=== PATIENT | female | born 1950 | race Caucasian/White ===

== ENCOUNTER 2018-02-04 11:06 | Emergency (ER) | payer MEDICARE, OTHER, SELFPAY ==
[2018-02-04 11:19] VITALS: BP 150/91; PULSE 91; RESP 18; TEMP 36.8; O2SAT 100; BMI 27.8
[2018-02-04] MEDS: ONDANSETRON 4 MG/2 ML INJ IV (11:54)
[2018-02-04] MEDS: SODIUM CHLORIDE 0.9% 1,000 ML 1000 ML IV ×2 (11:54→14:02)
[2018-02-04 12:02] LABS: Add Manual Diff / Slide Review NO; Basophils Percent Auto 0.8 % (0-2); Eosinophils Percent Auto 0.5 % (2-4); Hematocrit 42.8 % (36-46); Hemoglobin 14.9 g/dL (12.0-16.0); Lymphocytes Percent Auto 18.4 % (25-40); Mean Corpuscular HGB Conc 34.8 % (30-36); Mean Corpuscular Hemoglobin 31.6 PG (26-34); Mean Corpuscular Volume 90.8 fL (80-100); Monocytes Percent Auto 8.5 % (3-14); Neutrophils Absolute Auto 6200 /uL (3000-5900); Neutrophils Percent Auto 71.8 % (50-75); Platelet Count 187 X10^3/uL (150-400); Red Blood Cell Count 4.72 X10^6/uL (4.0-5.2); Red Cell Distribution Width 13.2 % (11.6-14.8); White Blood Cell Count 8.6 X10^3/uL (4.5-11.0)
--- NOTE | 2018-02-04 12:05 | PC.NURSE ---
Discussed ETOH use. Pt states she has increased ETOH r/t multiple life stressors over past year. (mother , 's cancer returned). Has strong jessee. Interested in counseling. Denies SI/HI. Has been on retirement lexapro.
[2018-02-04 12:10] LABS: Prothrombin Time 10.7 SECONDS (10.1-12.7)
[2018-02-04 12:12] LABS: PTT Partial Thromboplastin Tim 26 SECONDS (26.4-36.2)
[2018-02-04 12:47] LABS: Alanine Aminotransferase 131 IU/L (9-52); Albumin 4.5 g/dL (3.5-5.0); Albumin Globulin Ratio 1.7 (1.0-2.8); Alkaline Phosphatase 102 U/L (38-126); Aspartate Aminotransferase 100 IU/L (14-36); BUN Creatinine Ratio 21.4 (6-22); Blood Urea Nitrogen 15 mg/dL (7-17); Calcium 9.1 mg/dL (8.4-10.2); Carbon Dioxide 31 mmol/L (22-32); Chloride 97 mmol/L (98-107); Estimated Glomerular Filt Rate > 60.0 mL/min (>60); Globulin 2.7 g/dL (1.7-4.1); Glucose 100 mg/dL (80-110); HEMOLYSIS < 15 (0-50); Lipase 30 U/L (23-300); Potassium 3.9 mmol/L (3.4-5.1); Sodium 137 mmol/L (137-145); Total Protein 7.2 g/dL (6.3-8.2)
[2018-02-04 12:54] VITALS: BP 142/90; PULSE 99; RESP 15; O2SAT 98
[2018-02-04] MEDS: PANTOPRAZOLE 40 MG VIAL IV (14:02)
[2018-02-04] MEDS: PHENobarbital 65 MG/ML VIAL 130 MG IV (14:34)
[2018-02-04 14:45] VITALS: BP 131/65; PULSE 88; O2SAT 97
[2018-02-04 15:25] VITALS: BP 143/86; PULSE 105; RESP 18; O2SAT 96
[2018-02-04 15:45] VITALS: BP 136/74; PULSE 90; RESP 16; O2SAT 99
[2018-02-04 16:01] LABS: Bacteria Urine Few (2-10); Culture Indicated Urine Cult Not Indicated; RBC Urine 0-1/HPF (0-5/HPF); WBC Urine 0-1/HPF (0-5/HPF)
--- NOTE | 2018-02-04 16:09 | ED_ITS ---
HPI - Nausea/Vomiting/Diarrhea General Chief complaint: Nausea/Vomiting/Diarrhea Stated complaint: abdominal pain/vomitting/nausea History of Present Illness HPI Narrative: HPI 67-year-old female presents with nausea, intermittent hallucinations, mild malaise, and dry heaves that is been gradual in onset and persistent for 3 days since abrupt alcohol cessation from a bottle of wine daily. Patient chest pain, shortness breath, fevers, chills. Patient denies similar bars of EtOH absence. Patient has a primary care nurse practitioner that she can follow-up with. Patient notes hearing sounds that were present last night and seeing her cat(s) walking through the house last night while there were not present. Patient notes mild anxiety, slight agitation, denies tactile disturbances, denies headache. M/S/F/SocHx notable for: please see HPI; remainder reviewed with patient and in chart. ROS: Negative constitutional, eye, cardiovascular, pulmonary, GI, , MSK, skin , neurologic, psychiatric, endocrine unless noted in the HPI. Exam Gen: Pleasant, non-toxic appearing, appears mildly anxious, otherwise resting comfortably. HEENT: NC, AT, PEERL, EOMI. Resp: Clear to auscultation bilaterally, normal work of breathing, no accessory muscle usage. Card: Regular rate and rhythm with no murmurs, rubs, or gallops, extremities warm and well perfused. GI: Non-tender to palpation throughout all quadrants, no focal tenderness at McBurney's point, negative Lira's sign, non-distended, no rebound or guarding. : No suprapubic tenderness to palpation. MSK: No visible deformities, strength and tone without visually appreciable deficit. Skin: Normal color with no visible lesions. Neuro: AO x 3, no facial asymmetry, vision and hearing WNL. Mild tremor. Palms moist. Mildly increased psychomotor agitation. Patient able to perform serial sevens. Psych: Mood and affect appropriate. Labs / Imaging: WBC 8.6, he was given 14.9 PT/INR 1.0 sodium 137, potassium 3.9, creatinine 0.70, AST 100, ALT 131, total bilirubin 1.0, ALP 102, lipase 30, magnesium 2.0 MDM Previous chart, nursing note, labs, imaging, and vitals reviewed. A: 67-year-old female presents with nausea, intermittent hallucinations, mild malaise, and dry heaves that is been gradual in onset and persistent for 3 days since abrupt alcohol cessation from a bottle of wine daily. DDx & Evaluation: overall symptom constellation strongly consistent with EtOH withdraw, CIWA 20-23 (depending on subjective elements), electrolytes within acceptable limits, patient given 130 mg phenobarbital, 2 L NS, and a PPI. Patient with near complete resolution of symptoms. Gabapentin prescribed for withdraw, patient instructed to follow up with PCP tomorrow for repeat evaluation. History, exam, and labs without evidence of acute intra-abdominal process. Impression: EtOH withdraw (please reference below for remainder of encounter information) Related Data Home Medications Medication Instructions Recorded Confirmed cholecalciferol (vitamin D3) 2,000 unit PO QDAY #0 12/27/10 02/04/18 [Vitamin D3] coenzyme Q10 [Co Q-10] 300 mg PO QDAY #0 12/27/10 02/04/18 escitalopram oxalate [Lexapro] 10 mg PO DAILY #0 12/27/10 02/04/18 multivitamin [Multiple Vitamins] 1 tab PO QDAY #0 12/27/10 02/04/18 famotidine 20 mg PO QDAYP PRN #0 05/17/17 02/04/18 omega 6-fss-epp-fish oil [Fish Oil] 1,200 mg PO QDAY #0 05/17/17 02/04/18 vit C,T-Pu-syviw-lutein-zeaxan 1 cap PO QDAY #0 05/17/17 02/04/18 [Ocuvite Lutein and Zeaxanthin] Allergies Allergy/AdvReac Type Severity Reaction Status Date / Time morphine [MORPHINE] AdvReac Unknown Depression Verified 02/04/18 11:27 [facility] Medical History Alcohol abuse (Acute) Depression (Acute) GERD (gastroesophageal reflux disease) (Acute) Insomnia (Acute) Social History Smoking Status: Never smoker Exam Initial Vital Signs Initial Vital Signs: Vital Signs Temperature 98.3 F 02/04/18 11:19 Pulse Rate 91 H 02/04/18 11:19 Respiratory Rate 18 02/04/18 11:19 Blood Pressure 150/91 H 02/04/18 11:19 Pulse Oximetry 100 02/04/18 11:19 Course Orders Ordered: ED Orders 02/04/18 11:43 Partial Thromboplastin Time Stat Prothrombin Time INR Stat 02/04/18 12:25 Magnesium Stat 02/04/18 12:30 Complete Blood Count AUTO DIFF Stat Comprehensive Metabolic Panel Stat Lipase Stat 02/04/18 14:43 Urine Microscopic Stat Discontinued Medications Sodium Chloride (Normal Saline 0.9%) 1,000 mls @ 1,000 mls/hr IV BOLUS ONE Stop: 02/04/18 12:46 Last Infusion: 02/04/18 13:14 Dose: 0 mls/hr Admin: 02/04/18 11:54 Dose: 1,000 mls/hr Sodium Chloride (Normal Saline 0.9%) 1,000 mls @ 1,000 mls/hr IV BOLUS ONE Stop: 02/04/18 14:31 Last Admin: 02/04/18 14:02 Dose: 1,000 mls/hr Ondansetron HCl (Zofran) 4 mg IV NOW ONE Stop: 02/04/18 11:46 Last Admin: 02/04/18 11:54 Dose: 4 mg Pantoprazole Sodium (Protonix) 40 mg IV NOW ONE Stop: 02/04/18 13:33 Last Admin: 02/04/18 14:02 Dose: 40 mg Phenobarbital (Phenobarbital) 130 mg IV NOW ONE Stop: 02/04/18 13:33 Last Admin: 02/04/18 14:34 Dose: 130 mg Vital Signs - 8 hr 02/04/18 11:19 02/04/18 12:54 02/04/18 14:45 Temperature 98.3 F Pulse Rate 91 H 99 H 88 Respiratory Rate 18 15 Blood Pressure 150/91 H Blood Pressure [Right Arm] 142/90 H 131/65 H Pulse Oximetry 100 98 97 02/04/18 15:25 02/04/18 15:45 Temperature Pulse Rate 105 H 90 Respiratory Rate 18 16 Blood Pressure Blood Pressure [Right Arm] 143/86 H 136/74 H Pulse Oximetry 96 99 MDM - Nausea/Vomiting/Diarrhea Lab Data Result diagrams: 02/04/18 12:30 02/04/18 12:30 Lab Results 02/04/18 02/04/18 02/04/18 Range/Units 11:43 12:25 12:30 WBC 8.6 (4.5-11.0) X10^3/uL RBC 4.72 (4.0-5.2) X10^6/uL Hgb 14.9 (12.0-16.0) g/dL Hct 42.8 (36-46) % MCV 90.8 (80-100) fL MCH 31.6 (26-34) PG MCHC 34.8 (30-36) % RDW 13.2 (11.6-14.8) % Plt Count 187 (150-400) X10^3/uL Neut % (Auto) 71.8 (50-75) % Lymph % (Auto) 18.4 L (25-40) % [place] % (Auto) 8.5 (3-14) % Eos % (Auto) 0.5 L (2-4) % Baso % (Auto) 0.8 (0-2) % Neut # (Auto) 6200 H (8831-5873) /uL PT 10.7 (10.1-12.7) SECONDS INR 1.0 (0.9-1.3) APTT 26 L (26.4-36.2) SECONDS Sodium (137-145) mmol/L Potassium (3.4-5.1) mmol/L Chloride (98-107) mmol/L Carbon Dioxide (22-32) mmol/L BUN (7-17) mg/dL Creatinine (0.52-1.04) mg/dL Estimated GFR (>60) mL/min BUN/Creatinine Ratio (6-22) Glucose (80-110) mg/dL Calcium (8.4-10.2) mg/dL Magnesium 2.0 (1.6-2.3) mg/dL Total Bilirubin (0.2-1.3) mg/dL AST (14-36) IU/L ALT (9-52) IU/L Alkaline Phosphatase (38-126) U/L Total Protein (6.3-8.2) g/dL Albumin (3.5-5.0) g/dL Globulin (1.7-4.1) g/dL Albumin/Globulin Ratio (1.0-2.8) Lipase (23-300) U/L Urine Color Urine Appearance Urine pH Ur Specific [place] Urine Protein Urine Glucose (UA) Urine Ketones Urine Occult Blood Urine Nitrate Urine Bilirubin Urine Urobilinogen Ur Leukocyte Esterase Urine RBC (0-5/HPF) Urine WBC (0-5/HPF) Urine Bacteria (None) Ur Culture Indicated? Micro UA Comment 02/04/18 02/04/18 Range/Units 12:30 14:43 WBC (4.5-11.0) X10^3/uL RBC (4.0-5.2) X10^6/uL Hgb (12.0-16.0) g/dL Hct (36-46) % MCV (80-100) fL MCH (26-34) PG MCHC (30-36) % RDW (11.6-14.8) % Plt Count (150-400) X10^3/uL Neut % (Auto) (50-75) % Lymph % (Auto) (25-40) % [place] % (Auto) (3-14) % Eos % (Auto) (2-4) % Baso % (Auto) (0-2) % Neut # (Auto) (4349-2777) /uL PT (10.1-12.7) SECONDS INR (0.9-1.3) APTT (26.4-36.2) SECONDS Sodium 137 (137-145) mmol/L Potassium 3.9 (3.4-5.1) mmol/L Chloride 97 L (98-107) mmol/L Carbon Dioxide 31 (22-32) mmol/L BUN 15 (7-17) mg/dL Creatinine 0.70 (0.52-1.04) mg/dL Estimated GFR > 60.0 (>60) mL/min BUN/Creatinine Ratio 21.4 (6-22) Glucose 100 (80-110) mg/dL Calcium 9.1 (8.4-10.2) mg/dL Magnesium (1.6-2.3) mg/dL Total Bilirubin 1.0 (0.2-1.3) mg/dL AST 100 H (14-36) IU/L ALT 131 H (9-52) IU/L Alkaline Phosphatase 102 (38-126) U/L Total Protein 7.2 (6.3-8.2) g/dL Albumin 4.5 (3.5-5.0) g/dL Globulin 2.7 (1.7-4.1) g/dL Albumin/Globulin Ratio 1.7 (1.0-2.8) Lipase 30 (23-300) U/L Urine Color Cancelled Urine Appearance Cancelled Urine pH Cancelled Ur Specific [place] Cancelled Urine Protein Cancelled Urine Glucose (UA) Cancelled Urine Ketones Cancelled Urine Occult Blood Cancelled Urine Nitrate Cancelled Urine Bilirubin Cancelled Urine Urobilinogen Cancelled Ur Leukocyte Esterase Cancelled Urine RBC 0-1/hpf (0-5/HPF) Urine WBC 0-1/hpf (0-5/HPF) Urine Bacteria Few (2-10) H (None) Ur Culture Indicated? Cult not indicated Micro UA Comment Not Reportable Discharge Plan Departure Prescriptions: No Action escitalopram oxalate [Lexapro] 10 MG tablet 10 mg PO DAILY Qty: 0 RF: 0 cholecalciferol (vitamin D3) [Vitamin D3] 2,000 UNIT capsule 2,000 unit PO QDAY Qty: 0 RF: 0 multivitamin [Multiple Vitamins] 1 EACH tablet 1 tab PO QDAY Qty: 0 RF: 0 coenzyme Q10 [Co Q-10] 100 MG capsule 300 mg PO QDAY Qty: 0 RF: 0 vit C,Z-Ff-tbxap-lutein-zeaxan [Ocuvite Lutein and Zeaxanthin] 1 EACH capsule 1 cap PO QDAY Qty: 0 RF: 0 famotidine 20 MG tablet 20 mg PO QDAYP PRN (Reason: GERD) Qty: 0 RF: 0 omega 5-qsv-bde-fish oil [Fish Oil] 1,000 mg (120 mg-180 mg) Capsule 1,200 mg PO QDAY Qty: 0 RF: 0
== END 2018-02-04 16:31 | disposition home or self-care (01) ==
PROVIDERS: Emergency Provider Emergency Medicine
DX: F10.239 Alcohol dependence with withdrawal, unspecified (principal)
CPT/HCPCS: 36415; 36591; 80053; 81003; 81015; 83690; 83735; 85025; 85610; 85730; 96361; 96374; 96375; 99283; 99284; C9113; J2405; J2560

== ENCOUNTER 2018-03-18 14:39 | Emergency (ER) | payer MEDICARE, OTHER, SELFPAY ==
[2018-03-18 14:42] VITALS: BP 151/98; PULSE 99; RESP 20; TEMP 37; O2SAT 99; BMI 28.5
[2018-03-18] MEDS: SODIUM CHLORIDE 0.9% 1,000 ML 1000 ML IV (14:55)
[2018-03-18 15:29] LABS: Add Manual Diff / Slide Review NO; Basophils Percent Auto 0.7 % (0-2); Eosinophils Percent Auto 0.3 % (2-4); Hematocrit 44.8 % (36-46); Hemoglobin 15.1 g/dL (12.0-16.0); Lymphocytes Percent Auto 10.4 % (25-40); Mean Corpuscular HGB Conc 33.8 % (30-36); Mean Corpuscular Hemoglobin 31.5 PG (26-34); Mean Corpuscular Volume 93.2 fL (80-100); Monocytes Percent Auto 5.3 % (3-14); Neutrophils Absolute Auto 8000 /uL (3000-5900); Neutrophils Percent Auto 83.3 % (50-75); Platelet Count 246 X10^3/uL (150-400); Red Blood Cell Count 4.81 X10^6/uL (4.0-5.2); Red Cell Distribution Width 13.4 % (11.6-14.8); White Blood Cell Count 9.6 X10^3/uL (4.5-11.0)
[2018-03-18 15:35] LABS: Alanine Aminotransferase 103 IU/L (9-52); Albumin Globulin Ratio 1.6 (1.0-2.8); Alkaline Phosphatase 116 U/L (38-126); Aspartate Aminotransferase 79 IU/L (14-36); BUN Creatinine Ratio 24.3 (6-22); Bilirubin Total 0.8 mg/dL (0.2-1.3); Blood Urea Nitrogen 17 mg/dL (7-17); Calcium 9.7 mg/dL (8.4-10.2); Carbon Dioxide 31 mmol/L (22-32); Chloride 95 mmol/L (98-107); Estimated Glomerular Filt Rate > 60.0 mL/min (>60); Ethanol (ETOH) < 10 mg/dL; Globulin 3.2 g/dL (1.7-4.1); Glucose 119 mg/dL (80-110); HEMOLYSIS < 15 (0-50); Lipase 48 U/L (23-300); Potassium 4.7 mmol/L (3.4-5.1); Sodium 138 mmol/L (137-145); Total Protein 8.2 g/dL (6.3-8.2)
[2018-03-18 15:55] LABS: Prothrombin Time 11.1 SECONDS (10.1-12.7)
[2018-03-18 15:57] LABS: PTT Partial Thromboplastin Tim 28 SECONDS (26.4-36.2)
[2018-03-18 16:00] VITALS: BP 145/65; PULSE 99; RESP 15; O2SAT 98
--- NOTE | 2018-03-18 16:00 | ED.ABDPAIN ---
HPI - Abdominal Pain General Chief Complaint: Abdominal Pain Stated Complaint: ABD PAIN Time Seen by Provider: 03/18/18 14:55 Source: patient Mode of arrival: ambulatory Limitations: no limitations History of Present Illness HPI narrative: Patient is a 67-year-old female who presents with abdominal pain. She states that she has been drinking a lot over the summer to help deal with her 's diagnosis. She is wanting help with alcohol and withdrawal. She states that she drinks 3 bottles in 2 days she does have some tremor sometimes she has never had seizures. He has some mild right upper quadrant pain no vomiting or fevers. MD complaint: abdominal pain Related Data Home Medications Medication Instructions Recorded Confirmed cholecalciferol (vitamin D3) 2,000 unit PO QDAY #0 12/27/10 02/04/18 [Vitamin D3] coenzyme Q10 [Co Q-10] 300 mg PO QDAY #0 12/27/10 02/04/18 escitalopram oxalate [Lexapro] 10 mg PO DAILY #0 12/27/10 02/04/18 multivitamin [Multiple Vitamins] 1 tab PO QDAY #0 12/27/10 02/04/18 famotidine 20 mg PO QDAYP PRN #0 05/17/17 02/04/18 omega 5-hsx-wfk-fish oil [Fish Oil] 1,200 mg PO QDAY #0 05/17/17 02/04/18 vit C,L-Zk-weuvn-lutein-zeaxan 1 cap PO QDAY #0 05/17/17 02/04/18 [Ocuvite Lutein and Zeaxanthin] Previous Rx's Medication Instructions Recorded gabapentin 300 mg PO BID #10 cap 03/18/18 hydroxyzine pamoate [Vistaril] 25 mg PO Q6-8H PRN #20 cap 03/18/18 Allergies Allergy/AdvReac Type Severity Reaction Status Date / Time morphine [MORPHINE] AdvReac Unknown Depression Verified 03/18/18 14:42 Review of Systems Review of Systems All systems reviewed & are unremarkable except as noted in HPI and below Constitutional Denies chills, Denies fever(s), Denies lethargy and Denies weakness Cardiovascular Denies chest pain, Denies irregular heart rhythm, Denies lightheadedness, Denies palpitations, Denies dyspnea, Denies dyspnea on exertion and Denies orthopnea Respiratory Denies cough, Denies dyspnea, Denies dyspnea on exertion and Denies wheezing Gastrointestinal Gastrointestinal: Reports as per HPI Genitourinary Denies hematuria, Denies flank pain, Denies urinary incontinence and Denies urinary urgency Musculoskeletal Denies back pain, Denies muscle weakness, Denies numbness and Denies tingling Integumentary/Breasts Denies pruritus, Denies erythema, Denies rash and Denies wounds Neurologic Denies numbness, Denies tingling and Denies weakness Psychiatric Reports as per HPI Endocrine Denies palpitations Allergic/Immunologic Denies wheezing PFSH Medical History Alcohol abuse (Acute) Depression (Acute) GERD (gastroesophageal reflux disease) (Acute) Insomnia (Acute) Social History Smoking Status: Never smoker Exam Initial Vital Signs Initial Vital Signs: Vital Signs Temperature 98.6 F 03/18/18 14:42 Pulse Rate 99 H 03/18/18 14:42 Respiratory Rate 20 03/18/18 14:42 Blood Pressure 151/98 H 03/18/18 14:42 Pulse Oximetry 99 03/18/18 14:42 GENERAL: Alert female no acute distress she is slightly anxious HEENT: Head atraumatic,EOMI, pupils reactive, face symmetric, CARDIOVASCULAR: Regular rate and rhythm without murmurs, rubs or gallops. RESPIRATORY: Breath sounds equal bilaterally, no wheezes rales or rhonchi. ABDOMEN: Soft, mild upper abdominal pain. Normoactive bowel sounds all 4 quadrants. No guarding or rebound. EXTREMITIES: Normal range of motion, no clubbing or edema. Neurovascularly intact NEUROLOGICAL: Alert and oriented x4.Normal gait and speech. Cranial nerves II through XII grossly intact. SKIN: Warm, dry, no laceration, no petechiae, no rashes or lesions. Course Orders Ordered: Discontinued Medications Sodium Chloride (Normal Saline 0.9%) 1,000 mls @ 1,000 mls/hr IV BOLUS ONE Stop: 03/18/18 16:54 Last Infusion: 03/18/18 15:57 Dose: 0 mls/hr Admin: 03/18/18 14:55 Dose: 1,000 mls/hr Vital Signs - 8 hr 03/18/18 14:42 03/18/18 16:00 03/18/18 16:30 Temperature 98.6 F Pulse Rate 99 H 99 H 101 H Respiratory Rate 20 15 14 Blood Pressure 151/98 H Blood Pressure [Left Arm] 145/65 H 152/89 H Pulse Oximetry 99 98 96 03/18/18 17:13 Temperature Pulse Rate 100 H Respiratory Rate 15 Blood Pressure 152/89 H Blood Pressure [Left Arm] Pulse Oximetry 96 MDM - Abdominal Pain Lab Data Attestation: I reviewed the patient's lab results. Result diagrams: 03/18/18 14:52 03/18/18 14:52 Lab Results 03/18/18 03/18/18 03/18/18 Range/Units 14:52 14:52 14:52 WBC 9.6 (4.5-11.0) X10^3/uL RBC 4.81 (4.0-5.2) X10^6/uL Hgb 15.1 (12.0-16.0) g/dL Hct 44.8 (36-46) % MCV 93.2 (80-100) fL MCH 31.5 (26-34) PG MCHC 33.8 (30-36) % RDW 13.4 (11.6-14.8) % Plt Count 246 (150-400) X10^3/uL Neut % (Auto) 83.3 H (50-75) % Lymph % (Auto) 10.4 L (25-40) % [place] % (Auto) 5.3 (3-14) % Eos % (Auto) 0.3 L (2-4) % Baso % (Auto) 0.7 (0-2) % Neut # (Auto) 8000 H (6368-6450) /uL PT 11.1 (10.1-12.7) SECONDS INR 1.0 (0.9-1.3) APTT 28 D (26.4-36.2) SECONDS Sodium 138 (137-145) mmol/L Potassium 4.7 (3.4-5.1) mmol/L Chloride 95 L (98-107) mmol/L Carbon Dioxide 31 (22-32) mmol/L BUN 17 (7-17) mg/dL Creatinine 0.70 (0.52-1.04) mg/dL Estimated GFR > 60.0 (>60) mL/min BUN/Creatinine Ratio 24.3 H (6-22) Glucose 119 H (80-110) mg/dL Calcium 9.7 (8.4-10.2) mg/dL Total Bilirubin 0.8 (0.2-1.3) mg/dL AST 79 H (14-36) IU/L ALT 103 H (9-52) IU/L Alkaline Phosphatase 116 (38-126) U/L Total Protein 8.2 (6.3-8.2) g/dL Albumin 5.0 (3.5-5.0) g/dL Globulin 3.2 (1.7-4.1) g/dL Albumin/Globulin Ratio 1.6 (1.0-2.8) Lipase 48 (23-300) U/L Ethyl Alcohol mg/dL 03/18/18 Range/Units 14:52 WBC (4.5-11.0) X10^3/uL RBC (4.0-5.2) X10^6/uL Hgb (12.0-16.0) g/dL Hct (36-46) % MCV (80-100) fL MCH (26-34) PG MCHC (30-36) % RDW (11.6-14.8) % Plt Count (150-400) X10^3/uL Neut % (Auto) (50-75) % Lymph % (Auto) (25-40) % [place] % (Auto) (3-14) % Eos % (Auto) (2-4) % Baso % (Auto) (0-2) % Neut # (Auto) (6042-3684) /uL PT (10.1-12.7) SECONDS INR (0.9-1.3) APTT (26.4-36.2) SECONDS Sodium (137-145) mmol/L Potassium (3.4-5.1) mmol/L Chloride (98-107) mmol/L Carbon Dioxide (22-32) mmol/L BUN (7-17) mg/dL Creatinine (0.52-1.04) mg/dL Estimated GFR (>60) mL/min BUN/Creatinine Ratio (6-22) Glucose (80-110) mg/dL Calcium (8.4-10.2) mg/dL Total Bilirubin (0.2-1.3) mg/dL AST (14-36) IU/L ALT (9-52) IU/L Alkaline Phosphatase (38-126) U/L Total Protein (6.3-8.2) g/dL Albumin (3.5-5.0) g/dL Globulin (1.7-4.1) g/dL Albumin/Globulin Ratio (1.0-2.8) Lipase (23-300) U/L Ethyl Alcohol < 10 mg/dL MDM Narrative Medical decision making narrative: Long discussion with patient about detox, AA and other options. She really does have some underlying depression and issues with her 's diagnosis that she feels she needs to discuss. We discussed therapy in counseling. I have referred her to Dr. Valles. She is requesting his Vistaril and gabapentin for detox which I am happy to write for. Discharge Plan Departure Patient Disposition: Home Clinical Impression: Alcoholism Discharge Date/Time: 03/18/18 17:14 Interventions: ED Discharge Assessment Last Done: 03/18/18 17:13 Instructions: Alcohol Use Disorder Activity Restrictions/Additional Instructions: *You have been diagnosed with alcoholism *What to do: Recommend therapy, AA, rehab, or detox *Continue to take medications as directed Gabapentin take as directed this is a taper dose over 4 days *Follow up with your primary care provider in 2-3 days and follow up with ortho, urology etc *Return to ER if you should have seizures, shaking or any new, worsening or concerning symptoms Prescriptions: New gabapentin 300 mg capsule 300 mg PO BID Qty: 10 RF: 0 hydroxyzine pamoate [Vistaril] 25 mg capsule 25 mg PO Q6-8H PRN (Reason: anxiety) Qty: 20 RF: 0 No Action escitalopram oxalate [Lexapro] 10 MG tablet 10 mg PO DAILY Qty: 0 RF: 0 cholecalciferol (vitamin D3) [Vitamin D3] 2,000 UNIT capsule 2,000 unit PO QDAY Qty: 0 RF: 0 multivitamin [Multiple Vitamins] 1 EACH tablet 1 tab PO QDAY Qty: 0 RF: 0 coenzyme Q10 [Co Q-10] 100 MG capsule 300 mg PO QDAY Qty: 0 RF: 0 vit C,J-Wy-yspnn-lutein-zeaxan [Ocuvite Lutein and Zeaxanthin] 1 EACH capsule 1 cap PO QDAY Qty: 0 RF: 0 famotidine 20 MG tablet 20 mg PO QDAYP PRN (Reason: GERD) Qty: 0 RF: 0 omega 8-wme-pwo-fish oil [Fish Oil] 1,000 mg (120 mg-180 mg) Capsule 1,200 mg PO QDAY Qty: 0 RF: 0 Referrals: Mauro Valles DO [Physician] -
--- NOTE | 2018-03-18 16:03 | ED_ITS ---
HPI - Abdominal Pain General Chief Complaint: Abdominal Pain Stated Complaint: ABD PAIN Time Seen by Provider: 03/18/18 14:55 Source: patient Mode of arrival: ambulatory Limitations: no limitations History of Present Illness HPI narrative: Patient is a 67-year-old female who presents with abdominal pain. She states that she has been drinking a lot over the summer to help deal with her 's diagnosis. She is wanting help with alcohol and withdrawal. She states that she drinks 3 bottles in 2 days she does have some tremor sometimes she has never had seizures. He has some mild right upper quadrant pain no vomiting or fevers. MD complaint: abdominal pain Related Data Home Medications Medication Instructions Recorded Confirmed cholecalciferol (vitamin D3) 2,000 unit PO QDAY #0 12/27/10 02/04/18 [Vitamin D3] coenzyme Q10 [Co Q-10] 300 mg PO QDAY #0 12/27/10 02/04/18 escitalopram oxalate [Lexapro] 10 mg PO DAILY #0 12/27/10 02/04/18 multivitamin [Multiple Vitamins] 1 tab PO QDAY #0 12/27/10 02/04/18 famotidine 20 mg PO QDAYP PRN #0 05/17/17 02/04/18 omega 0-qfn-eyi-fish oil [Fish Oil] 1,200 mg PO QDAY #0 05/17/17 02/04/18 vit C,L-Ol-pmnfy-lutein-zeaxan 1 cap PO QDAY #0 05/17/17 02/04/18 [Ocuvite Lutein and Zeaxanthin] Previous Rx's Medication Instructions Recorded gabapentin 300 mg PO BID #10 cap 03/18/18 hydroxyzine pamoate [Vistaril] 25 mg PO Q6-8H PRN #20 cap 03/18/18 Allergies Allergy/AdvReac Type Severity Reaction Status Date / Time morphine [MORPHINE] AdvReac Unknown Depression Verified 03/18/18 14:42 Review of Systems Review of Systems All systems reviewed & are unremarkable except as noted in HPI and below Constitutional Denies chills, Denies fever(s), Denies lethargy and Denies weakness Cardiovascular Denies chest pain, Denies irregular heart rhythm, Denies lightheadedness, Denies palpitations, Denies dyspnea, Denies dyspnea on exertion and Denies orthopnea Respiratory Denies cough, Denies dyspnea, Denies dyspnea on exertion and Denies wheezing Gastrointestinal Gastrointestinal: Reports as per HPI Genitourinary Denies hematuria, Denies flank pain, Denies urinary incontinence and Denies urinary urgency Musculoskeletal Denies back pain, Denies muscle weakness, Denies numbness and Denies tingling Integumentary/Breasts Denies pruritus, Denies erythema, Denies rash and Denies wounds Neurologic Denies numbness, Denies tingling and Denies weakness Psychiatric Reports as per HPI Endocrine Denies palpitations Allergic/Immunologic Denies wheezing PFSH Medical History Alcohol abuse (Acute) Depression (Acute) GERD (gastroesophageal reflux disease) (Acute) Insomnia (Acute) Social History Smoking Status: Never smoker Exam Initial Vital Signs Initial Vital Signs: Vital Signs Temperature 98.6 F 03/18/18 14:42 Pulse Rate 99 H 03/18/18 14:42 Respiratory Rate 20 03/18/18 14:42 Blood Pressure 151/98 H 03/18/18 14:42 Pulse Oximetry 99 03/18/18 14:42 GENERAL: Alert female no acute distress she is slightly anxious HEENT: Head atraumatic,EOMI, pupils reactive, face symmetric, CARDIOVASCULAR: Regular rate and rhythm without murmurs, rubs or gallops. RESPIRATORY: Breath sounds equal bilaterally, no wheezes rales or rhonchi. ABDOMEN: Soft, mild upper abdominal pain. Normoactive bowel sounds all 4 quadrants. No guarding or rebound. EXTREMITIES: Normal range of motion, no clubbing or edema. Neurovascularly intact NEUROLOGICAL: Alert and oriented x4.Normal gait and speech. Cranial nerves II through XII grossly intact. SKIN: Warm, dry, no laceration, no petechiae, no rashes or lesions. Course Orders Ordered: Discontinued Medications Sodium Chloride (Normal Saline 0.9%) 1,000 mls @ 1,000 mls/hr IV BOLUS ONE Stop: 03/18/18 16:54 Last Infusion: 03/18/18 15:57 Dose: 0 mls/hr Admin: 03/18/18 14:55 Dose: 1,000 mls/hr Vital Signs - 8 hr 03/18/18 14:42 03/18/18 16:00 03/18/18 16:30 Temperature 98.6 F Pulse Rate 99 H 99 H 101 H Respiratory Rate 20 15 14 Blood Pressure 151/98 H Blood Pressure [Left Arm] 145/65 H 152/89 H Pulse Oximetry 99 98 96 03/18/18 17:13 Temperature Pulse Rate 100 H Respiratory Rate 15 Blood Pressure 152/89 H Blood Pressure [Left Arm] Pulse Oximetry 96 MDM - Abdominal Pain Lab Data Attestation: I reviewed the patient's lab results. Result diagrams: 03/18/18 14:52 03/18/18 14:52 Lab Results 03/18/18 03/18/18 03/18/18 Range/Units 14:52 14:52 14:52 WBC 9.6 (4.5-11.0) X10^3/uL RBC 4.81 (4.0-5.2) X10^6/uL Hgb 15.1 (12.0-16.0) g/dL Hct 44.8 (36-46) % MCV 93.2 (80-100) fL MCH 31.5 (26-34) PG MCHC 33.8 (30-36) % RDW 13.4 (11.6-14.8) % Plt Count 246 (150-400) X10^3/uL Neut % (Auto) 83.3 H (50-75) % Lymph % (Auto) 10.4 L (25-40) % [place] % (Auto) 5.3 (3-14) % Eos % (Auto) 0.3 L (2-4) % Baso % (Auto) 0.7 (0-2) % Neut # (Auto) 8000 H (4240-6016) /uL PT 11.1 (10.1-12.7) SECONDS INR 1.0 (0.9-1.3) APTT 28 D (26.4-36.2) SECONDS Sodium 138 (137-145) mmol/L Potassium 4.7 (3.4-5.1) mmol/L Chloride 95 L (98-107) mmol/L Carbon Dioxide 31 (22-32) mmol/L BUN 17 (7-17) mg/dL Creatinine 0.70 (0.52-1.04) mg/dL Estimated GFR > 60.0 (>60) mL/min BUN/Creatinine Ratio 24.3 H (6-22) Glucose 119 H (80-110) mg/dL Calcium 9.7 (8.4-10.2) mg/dL Total Bilirubin 0.8 (0.2-1.3) mg/dL AST 79 H (14-36) IU/L ALT 103 H (9-52) IU/L Alkaline Phosphatase 116 (38-126) U/L Total Protein 8.2 (6.3-8.2) g/dL Albumin 5.0 (3.5-5.0) g/dL Globulin 3.2 (1.7-4.1) g/dL Albumin/Globulin Ratio 1.6 (1.0-2.8) Lipase 48 (23-300) U/L Ethyl Alcohol mg/dL 03/18/18 Range/Units 14:52 WBC (4.5-11.0) X10^3/uL RBC (4.0-5.2) X10^6/uL Hgb (12.0-16.0) g/dL Hct (36-46) % MCV (80-100) fL MCH (26-34) PG MCHC (30-36) % RDW (11.6-14.8) % Plt Count (150-400) X10^3/uL Neut % (Auto) (50-75) % Lymph % (Auto) (25-40) % [place] % (Auto) (3-14) % Eos % (Auto) (2-4) % Baso % (Auto) (0-2) % Neut # (Auto) (2030-3731) /uL PT (10.1-12.7) SECONDS INR (0.9-1.3) APTT (26.4-36.2) SECONDS Sodium (137-145) mmol/L Potassium (3.4-5.1) mmol/L Chloride (98-107) mmol/L Carbon Dioxide (22-32) mmol/L BUN (7-17) mg/dL Creatinine (0.52-1.04) mg/dL Estimated GFR (>60) mL/min BUN/Creatinine Ratio (6-22) Glucose (80-110) mg/dL Calcium (8.4-10.2) mg/dL Total Bilirubin (0.2-1.3) mg/dL AST (14-36) IU/L ALT (9-52) IU/L Alkaline Phosphatase (38-126) U/L Total Protein (6.3-8.2) g/dL Albumin (3.5-5.0) g/dL Globulin (1.7-4.1) g/dL Albumin/Globulin Ratio (1.0-2.8) Lipase (23-300) U/L Ethyl Alcohol < 10 mg/dL MDM Narrative Medical decision making narrative: Long discussion with patient about detox, AA and other options. She really does have some underlying depression and issues with her 's diagnosis that she feels she needs to discuss. We discussed therapy in counseling. I have referred her to Dr. Valles. She is requesting his Vistaril and gabapentin for detox which I am happy to write for. Discharge Plan Departure Patient Disposition: Home Clinical Impression: Alcoholism Discharge Date/Time: 03/18/18 17:14 Interventions: ED Discharge Assessment Last Done: 03/18/18 17:13 Instructions: Alcohol Use Disorder Activity Restrictions/Additional Instructions: *You have been diagnosed with alcoholism *What to do: Recommend therapy, AA, rehab, or detox *Continue to take medications as directed Gabapentin take as directed this is a taper dose over 4 days *Follow up with your primary care provider in 2-3 days and follow up with ortho , urology etc *Return to ER if you should have seizures, shaking or any new, worsening or concerning symptoms Prescriptions: New gabapentin 300 mg capsule 300 mg PO BID Qty: 10 RF: 0 hydroxyzine pamoate [Vistaril] 25 mg capsule 25 mg PO Q6-8H PRN (Reason: anxiety) Qty: 20 RF: 0 No Action escitalopram oxalate [Lexapro] 10 MG tablet 10 mg PO DAILY Qty: 0 RF: 0 cholecalciferol (vitamin D3) [Vitamin D3] 2,000 UNIT capsule 2,000 unit PO QDAY Qty: 0 RF: 0 multivitamin [Multiple Vitamins] 1 EACH tablet 1 tab PO QDAY Qty: 0 RF: 0 coenzyme Q10 [Co Q-10] 100 MG capsule 300 mg PO QDAY Qty: 0 RF: 0 vit C,K-Nf-czcqa-lutein-zeaxan [Ocuvite Lutein and Zeaxanthin] 1 EACH capsule 1 cap PO QDAY Qty: 0 RF: 0 famotidine 20 MG tablet 20 mg PO QDAYP PRN (Reason: GERD) Qty: 0 RF: 0 omega 8-cvq-njr-fish oil [Fish Oil] 1,000 mg (120 mg-180 mg) Capsule 1,200 mg PO QDAY Qty: 0 RF: 0 Referrals: Mauro Valles DO [Physician] -
[2018-03-18 16:30] VITALS: BP 152/89; PULSE 101; RESP 14; O2SAT 96
[2018-03-18 17:13] VITALS: BP 152/89; PULSE 100; RESP 15; O2SAT 96
== END 2018-03-18 17:14 | disposition home or self-care (01) ==
PROVIDERS: Emergency Provider Emergency Medicine
DX: F10.20 Alcohol dependence, uncomplicated (principal); R10.10 Upper abdominal pain, unspecified
CPT/HCPCS: 36591; 80053; 80320; 83690; 85025; 85610; 85730; 93005; 96360; 99283; 99284

== ENCOUNTER → 2022-05-03 14:42 | Outpatient (CLI) | payer MEDICARE, OTHER, SELFPAY ==
--- NOTE | 2022-05-03 14:44 | DI.RAD.S_ITS ---
PROCEDURE: XR LUMBAR SPINE 2-3V INDICATIONS: eval Left midback pain TECHNIQUE: 3 views of the lumbar spine were acquired. COMPARISON: [facility], CR, XR THORACIC SPINE 2V, 05/03/2022, 14:45. FINDINGS: Bones: 5 fae-[id number]-uqxzxlx vertebrae are present. Mild right convexity curvature thoracolumbar spine centered at T12-L1. Moderate superior endplate compression deformity of L2, approximately 40 percent vertebral body height loss. Mild superior endplate compression deformity of L1, approximately 20 percent vertebral body height loss. Mild-moderate multilevel degenerative changes with disc height loss, endplate spurring, and facet arthropathy. No suspicious bony lesions. Soft tissues: Overlying bowel gas pattern is normal. No suspicious soft tissue calcifications. IMPRESSION: 1. Mild-moderate multilevel degenerative changes of the lumbar spine. 2. Superior endplate compression fractures of L1 and L2, likely remote. Dictated by: Scotty Camp M.D. on 05/03/2022 at 20:27 Approved by: Scotty Camp M.D. on 05/03/2022 at 20:33
--- NOTE | 2022-05-03 14:44 | DI.RAD.S_ITS ---
PROCEDURE: XR THORACIC SPINE 2V INDICATIONS: eval Left midback pain TECHNIQUE: 2 views of the thoracic spine were acquired. COMPARISON: [facility], CR, XR LUMBAR SPINE 2-3V, 05/03/2022, 14:45. FINDINGS: Bones: Minimal superior endplate compression deformity of T11, approximately 10 percent vertebral body height loss. No suspicious bony lesions. 12 pairs of ribs are noted, and appear intact where visualized. Moderate multilevel degenerative changes with disc height loss, endplate spurring, and facet arthropathy. Soft tissues: No paravertebral stripe thickening. IMPRESSION: 1. No definite acute appearing fracture identified. If symptoms persist, follow-up radiographs and/or CT or MRI may be helpful for further evaluation. 2. Minimal superior endplate compression deformity of T11, probably remote. 3. Multilevel degenerative changes of the thoracic spine. Dictated by: Scotty Camp M.D. on 05/03/2022 at 20:34 Approved by: Scotty Camp M.D. on 05/03/2022 at 20:39
== END ==
PROVIDERS: PCP Registered Nurse Diabetes Educator; Referring Provider Registered Nurse Diabetes Educator; Visit Provider Registered Nurse Diabetes Educator
DX: M47.814 Spondylosis without myelopathy or radiculopathy, thoracic region (principal); M47.816 Spondylosis without myelopathy or radiculopathy, lumbar region; M48.56XA Collapsed vertebra, not elsewhere classified, lumbar region, initial encounter for fracture; M81.0 Age-related osteoporosis without current pathological fracture; M54.50 Low back pain, unspecified; M54.9 Dorsalgia, unspecified; Z85.3 Personal history of malignant neoplasm of breast
CPT/HCPCS: 72070; 72100

== ENCOUNTER → 2022-05-11 14:56 | Outpatient (CLI) | payer MEDICARE, OTHER, SELFPAY | PROVIDERS: PCP Registered Nurse Diabetes Educator; Referring Provider Registered Nurse Diabetes Educator; Visit Provider Registered Nurse Diabetes Educator | DX: M81.0 Age-related osteoporosis without current pathological fracture (principal); M54.9 Dorsalgia, unspecified; M54.50 Low back pain, unspecified; Z13.820 Encounter for screening for osteoporosis; Z78.0 Asymptomatic menopausal state | CPT/HCPCS: 77080 ==

== ENCOUNTER → 2023-01-24 17:07 | Outpatient (CLI) | payer MEDICARE, OTHER, SELFPAY ==
[2023-01-24 18:21] LABS: Hematocrit 39.3 % (36-46); Hemoglobin 13.2 g/dL (12.0-16.0); Mean Corpuscular HGB Conc 33.6 % (30-36); Mean Corpuscular Hemoglobin 30.2 PG (26-34); Mean Corpuscular Volume 89.9 fL (80-100); Platelet Count 166 X10^3/uL (150-400); Red Blood Cell Count 4.37 X10^6/uL (4.0-5.2); Red Cell Distribution Width 12.9 % (11.6-14.8)
[2023-01-24 19:03] LABS: Alanine Aminotransferase 27 IU/L (<35); Albumin 4.4 g/dL (3.5-5.0); Albumin Globulin Ratio 1.5 (1.0-2.8); Alkaline Phosphatase 91 U/L (38-126); Aspartate Aminotransferase 29 IU/L (14-36); BUN Creatinine Ratio 18.2 (6-22); Bilirubin Total 0.5 mg/dL (0.2-1.3); Blood Urea Nitrogen 14 mg/dL (7-17); Carbon Dioxide 31 mmol/L (22-32); Chloride 100 mmol/L (98-107); Cholesterol 141 mg/dL (140-199); Estimated Glomerular Filt Rate > 60 mL/min (>60); Globulin 2.9 g/dL (1.7-4.1); Glucose 92 mg/dL (80-110); HDL Cholesterol 63 mg/dL (40-60); HEMOLYSIS < 15 (0-50); LDL Cholesterol Calculated 64 mg/dL (<100); Potassium 4.9 mmol/L (3.4-5.1); Sodium 137 mmol/L (137-145); Total Protein 7.3 g/dL (6.3-8.2); Triglycerides 72 mg/dL (35-150)
[2023-01-24 19:46] LABS: Vitamin B12 Reflex MMA if <400 762 pg/mL (239-931)
== END ==
PROVIDERS: PCP Registered Nurse Diabetes Educator; Referring Provider Registered Nurse Diabetes Educator; Visit Provider Registered Nurse Diabetes Educator
DX: E78.5 Hyperlipidemia, unspecified (principal); R41.3 Other amnesia
CPT/HCPCS: 36415; 80053; 80061; 82607; 84443; 85027

== ENCOUNTER → 2023-02-02 15:53 | Outpatient (CLI) | payer MEDICARE, OTHER, SELFPAY ==
--- NOTE | 2023-02-02 | DI.MG.S_ITS ---
UNILATERAL LEFT DIGITAL SCREENING MAMMOGRAM 3D/2D WITH CAD POST MASTECTOMY: 02/02/2023 CLINICAL: Routine screening. Personal history of right breast cancer. Comparison is made to exams dated: 08/12/2008 mammogram - [facility], 03/15/2021 mammogram, 12/10/2018 mammogram, and 01/02/2015 mammogram - out side. There are scattered areas of fibroglandular density in the left breast (category b / 25%-50% glandular tissue). Current study was also evaluated with a Computer Aided Detection (CAD) system. No significant masses, calcifications, or other findings are seen in the breast. There has been no significant interval change. IMPRESSION: NEGATIVE There is no mammographic evidence of malignancy. A 1 year screening mammogram is recommended. Based on the Tyrer Cuzick model (a risk assessment model) the patient's lifetime risk is 3.4% and her 10 year risk is 2.8%. According to the ACR, ACS, and NCCN guidelines, an annual breast MRI exam along with mammogram is recommended if the patient's lifetime risk is 20% or greater. This exam was interpreted at Station ID: [id number]. NOTE: For mammograms, a report in lay terms will be sent to the patient. Approximately 15% of breast malignancies will not be visualized mammographically. In the management of a palpable breast mass, a negative mammogram must not discourage biopsy of a clinically suspicious lesion. Electronically Signed By: Musa whiting/jakob:02/03/2023 08:17:14 letter sent: Normal Exam ACR BI-RADS Category 1: Negative [id number]
--- NOTE | 2023-02-02 15:56 | DI.MRI.S_ITS ---
PROCEDURE: MR HEAD/BRAIN WO CON INDICATIONS: eval memory loss TECHNIQUE: Non-contrast axial T1 spin echo, axial T2 fast spin echo, sagittal and axial FLAIR, coronal T2 fast spin echo, axial gradient echo, axial diffusion and ADC through the brain. COMPARISON: [facility], CT, HEAD WITHOUT CONTRAST, 09/11/2014, 20:47. FINDINGS: Image quality: Excellent. CSF spaces: Ventricles appear symmetric in size and shape. Basal cisterns are patent. No extra-axial fluid collections. Brain: No intracranial bleeds or mass effects. There is cerebral volume loss for age. There are periventricular and deep white matter chronic small vessel ischemic changes. Brainstem appears normal. Diffusion-weighted images show no acute ischemic insults. There is a remote infarction seen involving the deep white matter of the left frontal lobe, with volume loss and encephalomalacia. Normal intravascular flow voids are present. Skull and face: Calvarial bone marrow is normal in signal. Orbits are normal. Note is made of bilateral lens replacements. Sinuses: Sinuses and mastoids are clear. 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 This is new compared to 2014. Note is made of age-appropriate brain parenchymal volume loss and chronic small vessel ischemic changes. Dictated by: Pedro Coello M.D. on 02/02/2023 at 16:05 Approved by: Pedro Coello M.D. on 02/02/2023 at 16:07
== END ==
PROVIDERS: PCP Registered Nurse Diabetes Educator; Referring Provider Registered Nurse Diabetes Educator; Visit Provider Registered Nurse Diabetes Educator
DX: R41.3 Other amnesia (principal); Z12.31 Encounter for screening mammogram for malignant neoplasm of breast; Z80.3 Family history of malignant neoplasm of breast; G93.89 Other specified disorders of brain
CPT/HCPCS: 70551; 77063; 77067

== ENCOUNTER → 2023-02-03 15:18 | Outpatient (CLI) | payer MEDICARE, OTHER, SELFPAY ==
--- NOTE | 2023-02-03 15:20 | DI.NM.S_ITS ---
PROCEDURE: NM EXERCISE TREADMILL NON NUC COMPARISON: None. INDICATIONS: atypical chest pain FINDINGS: the patient exercised for 8 minutes and 51 seconds on modified mark protocol due musculoskeletal issues. 7.8METS achieved. 108% of maximum predicted heart rate reached. Appropriate BP response to exercise. No angina, no ectopy, and no diagnostic ST changes during exercise or recovery. IMPRESSION: Low risk, normal treadmill ECG only stress test. Dictated by: Krystyna Maradiaga MD on 02/06/2023 at 13:23 Approved by: Krystyna Maradiaga MD on 02/06/2023 at 13:25
== END ==
PROVIDERS: PCP Registered Nurse Diabetes Educator; Referring Provider Registered Nurse Diabetes Educator; Visit Provider Registered Nurse Diabetes Educator
DX: R07.89 Other chest pain (principal)
CPT/HCPCS: 93017

== ENCOUNTER → 2023-09-06 16:59 | Outpatient (CLI) | payer MEDICARE, SELFPAY ==
--- NOTE | 2023-09-06 17:01 | DI.RAD.S_ITS ---
PROCEDURE: XR LUMBAR SPINE 2-3V INDICATIONS: eval lumbosacral pain TECHNIQUE: 3 views of the lumbar spine were acquired. COMPARISON: [facility], CR, XR LUMBAR SPINE 2-3V, 05/03/2022, 14:45. FINDINGS: Bones: 5 faq-eku-cfiulsx vertebrae are present. There is normal bony alignment. Unchanged compression fractures at L1 and L2. Minimal height loss at T11, unchanged. No suspicious bony lesions. Soft tissues: Overlying bowel gas pattern is normal. No suspicious soft tissue calcifications. IMPRESSION: Stable multilevel compression fractures. Dictated by: Artis Don M.D. on 09/07/2023 at 9:27 Approved by: Artis Don M.D. on 09/07/2023 at 9:29
--- NOTE | 2023-09-06 17:01 | DI.RAD.S_ITS ---
PROCEDURE: XR RIBS RT MIN 3V W CXR 1V INDICATIONS: eval questionable lump R lower anterior rib, hx breast CA TECHNIQUE: 2 views of the ribs were acquired, along with a single view chest. COMPARISON: [facility], , CHEST 1 VIEW, 05/17/2017, 15:49. FINDINGS: Surgical changes and devices: Right breast/axilla clips. Bones and chest wall: No fractures or dislocations. No suspicious bony lesions. Overlying soft tissues appear unremarkable. Lungs and pleura: No pleural effusions or pneumothorax. Lungs appear clear. Prominent lung volumes. Mediastinum: Mediastinal contours appear normal. Heart size is normal. IMPRESSION: No displaced rib fracture or pneumothorax. Dictated by: Artis Don M.D. on 09/07/2023 at 9:29 Approved by: Artis Don M.D. on 09/07/2023 at 9:31
== END ==
PROVIDERS: PCP Registered Nurse Diabetes Educator; Referring Provider Registered Nurse Diabetes Educator; Visit Provider Registered Nurse Diabetes Educator
DX: M48.56XA Collapsed vertebra, not elsewhere classified, lumbar region, initial encounter for fracture (principal); M54.59 Other low back pain; M89.9 Disorder of bone, unspecified; Z85.3 Personal history of malignant neoplasm of breast
CPT/HCPCS: 71101; 72100

== ENCOUNTER → 2023-11-08 15:09 | Outpatient (CLI) | payer MEDICARE, SELFPAY ==
--- NOTE | 2023-11-08 15:09 | DI.RAD.S_ITS ---
PROCEDURE: XR DEXA AXIAL SKELETON INDICATIONS: reeval COMPARISON: None. FINDINGS: Lumbar Spine: Bone mineral density 0.804 g/cm2, T score -2.7. Left Hip: Bone mineral density 0.619 g/cm2, T score -2.7. Left Femoral Neck: Bone mineral density 0.514 g/cm2, T score -3.0. Right Hip: Bone mineral density 0.577 g/cm2, T score -3.0. Right Femoral Neck: Bone mineral density 0.502 g/cm2, T score -3.1. Fracture Risk Calculation (when applicable): 10-year fracture risk of a major osteoporotic fracture 50% and of a hip fracture 34%. (T score greater or equal to -1.0 to: NORMAL) (T score from -1.1 to -2.4: OSTEOPENIA) (T score less than or equal to -2.5: OSTEOPOROSIS) IMPRESSION: Osteoporosis of the lumbar spine and the bilateral hips. Follow-up guidelines as follows: Osteoporosis: Consider a repeat DEXA and Vertebral Fracture Assessment (VFA) exam in 2 years or sooner if medically necessary, to reassess this patient's status. Osteopenia: Consider a repeat DEXA in 2-3 years to reassess this patient's status, or if there is a new clinical indication. Normal: Consider a repeat DEXA in 5 years or sooner, or if there is a new clinical indication. Dictated by: Hannah Mcconnell M.D. on 11/08/2023 at 17:07 Approved by: Hannah Mcconnell M.D. on 11/08/2023 at 17:08
== END ==
PROVIDERS: PCP Registered Nurse Diabetes Educator; Referring Provider Registered Nurse Diabetes Educator; Visit Provider Registered Nurse Diabetes Educator
DX: M81.0 Age-related osteoporosis without current pathological fracture (principal)
CPT/HCPCS: 77080

== ENCOUNTER → 2023-11-28 15:50 | Outpatient (CLI) | payer MEDICARE, SELFPAY ==
[2023-11-28 17:13] LABS: Hematocrit 39.7 % (36-46); Hemoglobin 13.4 g/dL (12.0-16.0); Mean Corpuscular HGB Conc 33.8 % (30-36); Mean Corpuscular Hemoglobin 30.8 PG (26-34); Mean Corpuscular Volume 91.3 fL (80-100); Platelet Count 191 X10^3/uL (150-400); Red Blood Cell Count 4.35 X10^6/uL (4.0-5.2); Red Cell Distribution Width 12.9 % (11.6-14.8); White Blood Cell Count 6.7 X10^3/uL (4.5-11.0)
[2023-11-28 18:11] LABS: Alanine Aminotransferase 21 IU/L (<35); Albumin 4.5 g/dL (3.5-5.0); Albumin Globulin Ratio 1.7 (1.0-2.8); Alkaline Phosphatase 76 U/L (38-126); Aspartate Aminotransferase 26 IU/L (14-36); BUN Creatinine Ratio 33.7 (6-22); Bilirubin Total 0.6 mg/dL (0.2-1.3); Blood Urea Nitrogen 28 mg/dL (7-17); Calcium 9.7 mg/dL (8.4-10.2); Carbon Dioxide 34 mmol/L (22-32); Chloride 102 mmol/L (98-107); Cholesterol 140 mg/dL (140-199); Estimated Glomerular Filt Rate > 60 mL/min (>60); Globulin 2.7 g/dL (1.7-4.1); Glucose 91 mg/dL (80-110); HDL Cholesterol 66 mg/dL (40-60); HEMOLYSIS < 15 (0-50); LDL Cholesterol Calculated 56 mg/dL (<100); Sodium 140 mmol/L (137-145); Total Protein 7.2 g/dL (6.3-8.2); Triglycerides 91 mg/dL (35-150); Vitamin D 25 Hydroxy (D3) 51.6 ng/mL (30.0-100.0)
[2023-11-28 18:28] LABS: TSH w/ Reflex to FT4 1.14 uIU/mL (0.47-4.68)
== END ==
PROVIDERS: PCP Registered Nurse Diabetes Educator; Referring Provider Registered Nurse Diabetes Educator; Visit Provider Registered Nurse Diabetes Educator
DX: M81.0 Age-related osteoporosis without current pathological fracture (principal); E78.5 Hyperlipidemia, unspecified; Z86.73 Personal history of transient ischemic attack (TIA), and cerebral infarction without residual deficits
CPT/HCPCS: 36415; 80053; 80061; 82306; 84443; 85027

== ENCOUNTER → 2024-11-19 15:22 | Outpatient (CLI) | payer MEDICARE, SELFPAY ==
[2024-11-19 16:23] LABS: Add Manual Diff / Slide Review NO; Basophils Absolute Auto 0 /uL (0-100); Basophils Percent Auto 0.7 % (0-2); Eosinophils Absolute Auto 200 /uL (0-450); Eosinophils Percent Auto 2.6 % (2-4); Hematocrit 41.4 % (36-46); Hemoglobin 13.9 g/dL (12.0-16.0); Lymphocytes Absolute Auto 1600 /uL (1100-4500); Lymphocytes Percent Auto 24.2 % (25-40); Mean Corpuscular HGB Conc 33.6 % (30-36); Mean Corpuscular Hemoglobin 30.9 PG (26-34); Mean Corpuscular Volume 92.1 fL (80-100); Monocytes Absolute Auto 500 /uL (0-900); Monocytes Percent Auto 7.1 % (3-14); Neutrophils Absolute Auto 4300 /uL (1500-7000); Neutrophils Percent Auto 65.4 % (50-75); Platelet Count 174 X10^3/uL (150-400); Red Blood Cell Count 4.49 X10^6/uL (4.0-5.2); Red Cell Distribution Width 12.7 % (11.6-14.8); White Blood Cell Count 6.6 X10^3/uL (4.5-11.0)
[2024-11-19 16:36] LABS: Alanine Aminotransferase 29 IU/L (<35); Albumin Globulin Ratio 2.1 (1.0-2.8); Alkaline Phosphatase 61 U/L (38-126); Aspartate Aminotransferase 34 IU/L (14-36); BUN Creatinine Ratio 34.4 (6-22); Bilirubin Total 0.5 mg/dL (0.2-1.3); Blood Urea Nitrogen 33 mg/dL (7-17); Calcium 10.1 mg/dL (8.4-10.2); Carbon Dioxide 31 mmol/L (22-32); Chloride 100 mmol/L (98-107); Cholesterol 163 mg/dL (140-199); Estimated Glomerular Filt Rate > 60 mL/min (>60); Globulin 2.4 g/dL (1.7-4.1); Glucose 87 mg/dL (70-99); HDL Cholesterol 77 mg/dL (40-60); HEMOLYSIS < 15 (0-50); LDL Cholesterol Calculated 68 mg/dL (<100); Potassium 5.2 mmol/L (3.4-5.1); Sodium 138 mmol/L (137-145); Total Protein 7.4 g/dL (6.3-8.2); Triglycerides 91 mg/dL (35-150)
[2024-11-19 17:09] LABS: Vitamin D 25 Hydroxy (D3) 61.1 ng/mL (30.0-100.0)
[2024-11-19 17:23] LABS: TSH w/ Reflex to FT4 3.37 uIU/mL (0.47-4.68)
== END ==
LOC: LAB 15:24
PROVIDERS: PCP Registered Nurse Diabetes Educator; Referring Provider Registered Nurse Diabetes Educator; Visit Provider Registered Nurse Diabetes Educator
DX: E78.5 Hyperlipidemia, unspecified (principal); M81.0 Age-related osteoporosis without current pathological fracture; Z86.73 Personal history of transient ischemic attack (TIA), and cerebral infarction without residual deficits; Z85.3 Personal history of malignant neoplasm of breast
CPT/HCPCS: 36415; 80053; 80061; 82306; 84443; 85025